=== PATIENT | female | born 1985 | race Caucasian/White ===

== ENCOUNTER 2017-07-04 20:32 | Emergency (ER) | payer BC, OTHER ==
[~2017-07-04] VITALS: Ht 170.2 cm; Wt 82.0 kg
[2017-07-04 20:41] VITALS: Ht 170.2 cm; Wt 82.0 kg
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
[2017-07-04 23:05] VITALS: BP 138/76; PULSE 117; RESP 18; TEMP 98
== END 2017-07-05 00:56 | disposition home or self-care (01) ==
LOC: EDBD 20:32 → E/R 20:32
DX: F10.929 Alcohol use, unspecified with intoxication, unspecified (principal)
CPT/HCPCS: 99285